=== PATIENT | female | born 1995 | race Caucasian/White ===

== ENCOUNTER 2019-01-20 19:04 | Emergency (ER) ==
[2019-01-20 20:08] LABS: APPEARANCE,URINE SLIGHTLY-CLOUDY; BILIRUBIN,URINE NEGATIVE (NEGATIVE); COLOR,URINE YELLOW; GLUCOSE, URINE NEGATIVE (NEGATIVE); KETONES,URINE NEGATIVE (NEGATIVE); LEUKOCYTE ESTERASE,URINE TRACE (NEGATIVE); NITRITE,URINE NEGATIVE (NEGATIVE); PROTEIN,URINE NEGATIVE (NEGATIVE); URINE SPECIFIC GRAVITY 1.024
== END 2019-01-20 21:42 | disposition left against medical advice (07) ==
LOC: ER 19:04
DX: Z53.21 Procedure and treatment not carried out due to patient leaving prior to being seen by health care provider (principal)
CPT/HCPCS: 81001; 81025

== ENCOUNTER 2019-07-06 16:28 | Emergency (ER) | payer OTHER ==
[2019-07-06] MEDS ORDERED: ONDANSETRON 4 MG TAB.RAPDIS PO ONE (17:22)
--- NOTE | 2019-07-06 17:24 | ER Document Report ---
ED Medical Screen (RME) - General Chief Complaint: Abdominal Pain Stated Complaint: ABDOMINAL PAIN,NAUSEA,PAINFUL URINATION Time Seen by Provider: 07/06/19 17:21 Mode of Arrival: Ambulatory Information source: Patient Notes: 24-year-old female presented to ED for complaint of abdominal pain that shoots up to her chest. She states she has had nausea and vomiting and pain with bowel movements for about a week. She states she only has the pain in her abdomen until she gets nauseated and then the pain shoots up to her chest. She is alert oriented respirations regular nonlabored speaking in full sentences. I have greeted and performed a rapid initial assessment of this patient. A comprehensive ED assessment and evaluation of the patient, analysis of test results and completion of medical decision making process will be conducted by an additional ED providers. TRAVEL OUTSIDE OF THE [place] IN LAST 30 DAYS: No - Related Data Allergies/Adverse Reactions: fluoxetine [From Prozac] Allergy (Verified 01/20/19 19:29) latex Allergy (Verified 01/20/19 19:29) Past Medical History - Social History Frequency of alcohol use: None Drug Abuse: None Physical Exam - Vital signs Vitals: Temp Pulse Resp BP Pulse Ox 98.3 F 104 H 20 140/83 H 100 07/06/19 16:41 07/06/19 16:41 07/06/19 16:41 07/06/19 16:41 07/06/19 16:41 Course - Vital Signs Vital signs: Temp Pulse Resp BP Pulse Ox 98.3 F 104 H 20 140/83 H 100 07/06/19 17:19 07/06/19 16:41 07/06/19 17:19 07/06/19 16:41 07/06/19 17:19
[2019-07-06 18:03] LABS: ABSOLUTE BASOPHILS # (AUTO) 0.1 10^3/uL (0.0-0.2); ABSOLUTE EOSINOPHILS # (AUTO) 0.1 10^3/uL (0.0-0.6); ABSOLUTE LYMPHOCYTES (AUTO) 2.2 10^3/uL (0.5-4.7); ABSOLUTE MONOCYTES (AUTO) 0.7 10^3/uL (0.1-1.4); BASOPHILS % (AUTO) 0.8 % (0-2); EOSINOPHILS % (AUTO) 1.7 % (0-6); HEMATOCRIT 42.1 % (36.0-47.0); HEMOGLOBIN 14.4 g/dL (12.0-15.5); LYMPHOCYTES % (AUTO) 27.5 % (13-45); MEAN CORPUSCULAR HEMOGLOBIN 31.1 pg (27.0-33.4); MEAN CORPUSCULAR HGB CONC 34.2 g/dL (32.0-36.0); MEAN CORPUSCULAR VOLUME 91 fl (80-97); MONOCYTES % (AUTO) 8.5 % (3-13); PLATELET COUNT 259 10^3/uL (150-450); RED BLOOD COUNT 4.63 10^6/uL (3.72-5.28); RED CELL DISTRIBUTION WIDTH 12.8 % (11.5-14.0); SEGMENTED NEUTROPHILS % (AUTO) 61.5 % (42-78); TOTAL CELLS COUNTED % (AUTO) 100 %; WHITE BLOOD COUNT 8.1 10^3/uL (4.0-10.5)
--- NOTE | 2019-07-06 18:14 | ER Document Report ---
ED General - General Chief Complaint: Abdominal Pain Stated Complaint: ABDOMINAL PAIN,NAUSEA,PAINFUL URINATION Time Seen by Provider: 07/06/19 17:21 Primary Care Provider: KRISTYN JETER PA-C [Primary Care Provider] - Follow up in 1 week Mode of Arrival: Ambulatory Information source: Patient Notes: 24-year-old female with history of GERD, kidney stones, hypoglycemia presents emergency department with complaints of left lower mid abdominal pain for the past week. She reports she has vomited 3 times. Reports last bowel movement was today. She reports increased pain after she has a bowel movement. Denies fever and diarrhea. Denies history of Crohn's or IBS. Denies pain with void. Denies vaginal discharge. Patient left lower quad very tender to palpate TRAVEL OUTSIDE OF THE [place] IN LAST 30 DAYS: No - HPI Onset: Last week Onset/Duration: Persistent Quality of pain: Achy Severity: Severe Associated symptoms: Nausea, Vomiting Exacerbated by: Denies Relieved by: Denies Similar symptoms previously: No Recently seen / treated by doctor: No - Related Data Allergies/Adverse Reactions: fluoxetine [From Prozac] Allergy (Verified 01/20/19 19:29) latex Allergy (Verified 01/20/19 19:29) Past Medical History - General Information source: Patient Last Menstrual Period: friday - Social History Smoking Status: Unknown if Ever Smoked Cigarette use (# per day): No Frequency of alcohol use: None Drug Abuse: None Lives with: Family Family History: Hypertension Patient has suicidal ideation: No Patient has homicidal ideation: No Endocrine Medical History: Reports: Other - hypoglycemia Renal/ Medical History: Reports: Hx Kidney Stones GI Medical History: Reports: Hx Gastroesophageal Reflux Disease Infectious Medical History: Reports: Other - staph Past Surgical History: Reports: Other - cyst removed Review of Systems - Review of Systems Notes: Review HPI for review of systems., All other systems negative Physical Exam - Vital signs Vitals: Temp Pulse Resp BP Pulse Ox 98.3 F 104 H 20 140/83 H 100 07/06/19 16:41 07/06/19 16:41 07/06/19 16:41 07/06/19 16:41 07/06/19 16:41 - General General appearance: Alert In distress: None - HEENT Head: Normocephalic Eyes: Normal Conjunctiva: Normal Extraocular movements intact: Yes Eyelashes: Normal Neck: Normal, Supple. No: Lymphadenopathy - Respiratory Respiratory status: No respiratory distress Chest status: Nontender Breath sounds: Normal Chest palpation: Normal - Cardiovascular Rhythm: Regular Heart sounds: Normal auscultation Murmur: No - Abdominal Inspection: Normal Distension: No distension Bowel sounds: Hypoactive Tenderness: Tender Organomegaly: No organomegaly Adult front & back diagram: 1 - Left lower quad mid abdomen tender to palpate, abdomen soft - Back Back: CVA tenderness - Bilateral flank pain - Extremities General upper extremity: Normal ROM, Normal strength General lower extremity: Normal ROM, Normal strength - Neurological Neuro grossly intact: Yes Cognition: Normal Orientation: AAOx4 [place] Coma Scale Eye Opening: Spontaneous [place] Coma Scale Verbal: Oriented [place] Coma Scale Motor: Obeys Commands [place] Coma Scale Total: 15 Speech: Normal - Psychological Associated symptoms: Normal affect, Normal mood - Skin Skin Temperature: Warm Skin Moisture: Dry Skin Color: Normal Course - Re-evaluation Re-evalutation: 07/06/19 19:27 24-year-old female presents with left lower quad mid abdominal pain for the past week. Reports pain increases after having a bowel movement. Last bowel movement was today. Denies history of constipation but reports she has experienced constipation in the past. Reports she is vomited 3 times in the past week denies fever. Denies history of IBS Crohn's diverticulitis. Patient left lower quad mid and lower abdomen tender to palpate 07/06/19 21:[address] negative patient instructed on all results. Instructed follow-up with primary care provider for continued pain within 1 week. She verbalized understand all instructions. 07/06/19 17:39 07/06/19 17:39 MCV 91 fl (80-97) 07/06/19 17:39 MCH 31.1 pg (27.0-33.4) 07/06/19 17:39 MCHC 34.2 g/dL (32.0-36.0) 07/06/19 17:39 RDW 12.8 % (11.5-14.0) 07/06/19 17:39 Seg Neutrophils % 61.5 % (42-78) 07/06/19 17:39 Chloride 103 mmol/L (98-107) 07/06/19 17:39 Carbon Dioxide 28 mmol/L (22-30) 07/06/19 17:39 Anion Gap 10 (5-19) 07/06/19 17:39 Est GFR ( Amer) > 60 (>60) 07/06/19 17:39 Glucose 91 mg/dL (75-110) 07/06/19 17:39 Calcium 10.1 mg/dL (8.4-10.2) 07/06/19 17:39 Total Bilirubin 0.5 mg/dL (0.2-1.3) 07/06/19 17:39 AST 23 U/L (14-36) 07/06/19 17:39 Alkaline Phosphatase 60 U/L (38-126) 07/06/19 17:39 Total Protein 8.3 g/dL (6.3-8.2) H 07/06/19 17:39 Albumin 4.8 g/dL (3.5-5.0) 07/06/19 17:39 Lipase 135.6 U/L (23-300) 07/06/19 17:39 Serum HCG, Qual NEGATIVE (NEGATIVE) 07/06/19 17:39 Urine Color YELLOW 07/06/19 18:45 Urine Appearance TURBID 07/06/19 18:45 Urine pH 9.0 (5.0-9.0) 07/06/19 18:45 Ur Specific [place] 1.021 07/06/19 18:45 Urine Protein 30 mg/dL (NEGATIVE) H 07/06/19 18:45 Urine Glucose (UA) NEGATIVE mg/dL (NEGATIVE) 07/06/19 18:45 Urine Ketones NEGATIVE mg/dL (NEGATIVE) 07/06/19 18:45 Urine Blood NEGATIVE (NEGATIVE) 07/06/19 18:45 Abdomen/Pelvis CT 07/06/19 19:23 IMPRESSION: No acute abdominal or pelvic findings. - Vital Signs Vital signs: Temp Pulse Resp BP Pulse Ox 98.2 F 81 16 109/60 100 07/06/19 21:57 07/06/19 21:57 07/06/19 21:57 07/06/19 21:57 07/06/19 21:57 - Laboratory Result Diagrams: 07/06/19 17:39 07/06/19 17:39 Laboratory results interpreted by me: 07/06/19 07/06/19 17:39 18:45 Total Protein 8.3 H Urine Protein 30 H Leukocyte Esterase Rfl TRACE H Discharge - Discharge Clinical Impression: Abdominal pain Condition: Stable Disposition: HOME, SELF-CARE Instructions: Abdominal Pain ([facility]) Additional Instructions: *You have been evaluated for abdominal pain Your CT and labs were unremarkable today *Follow up with a primary care provider within 1 week for recheck *Return to ED for worsening condition, changes, needs *Return to ED if not better in 24 hours Referrals: KRISTYN JETER PA-C [Primary Care Provider] - Follow up in 1 week
[2019-07-06 18:28] LABS: ALBUMIN 4.8 g/dL (3.5-5.0); ALKALINE PHOSPHATASE 60 U/L (38-126); ANION GAP 10 (5-19); ASPARTATE AMINO TRANSFERASE 23 U/L (14-36); BILIRUBIN,DIRECT 0.1 mg/dL (0.0-0.4); BILIRUBIN,TOTAL 0.5 mg/dL (0.2-1.3); BLOOD UREA NITROGEN 14 mg/dL (7-20); CALCIUM 10.1 mg/dL (8.4-10.2); CARBON DIOXIDE 28 mmol/L (22-30); CHLORIDE 103 mmol/L (98-107); GLUCOSE 91 mg/dL (75-110); POTASSIUM 4.3 mmol/L (3.6-5.0); TOTAL PROTEIN 8.3 g/dL (6.3-8.2)
[2019-07-06 19:14] LABS: AMORPHOUS SEDIMENT,URINE 1+ /HPF; APPEARANCE,URINE TURBID; BILIRUBIN,URINE NEGATIVE (NEGATIVE); COLOR,URINE YELLOW; GLUCOSE, URINE NEGATIVE (NEGATIVE); KETONES,URINE NEGATIVE (NEGATIVE); PROTEIN,URINE 30 mg/dL (NEGATIVE); URINE SPECIFIC GRAVITY 1.021; UROBILINOGEN,URINE NEGATIVE mg/dL (<2.0)
--- NOTE | 2019-07-06 21:19 | RADIOLOGY REPORT (SQ) ---
CT ABDOMEN PELVIS WITH IV CONTRAST EXAM DATE: 07/06/2019 7:23 PM [employer] [employer] HISTORY: Left lower quadrant pain. COMPARISON: None. TECHNIQUE: CT scan of the abdomen and pelvis was performed with IV contrast. This exam was performed according to our departmental dose-optimization program, which includes automated exposure control, adjustment of the mA and/or kV according to patient size and/or use of iterative reconstruction technique. FINDINGS: The lung bases are clear. No pleural or pericardial effusions. There is no hiatal hernia. The liver, spleen, pancreas, gallbladder, adrenal glands, and kidneys are unremarkable. No urinary stones are seen. The pelvic organs are also unremarkable. No small bowel obstruction. No evidence of appendicitis. There is no evidence of diverticulitis. No intraperitoneal free fluid or free air is identified. The aorta is normal caliber. No acute bony findings are seen. There is no pathologic body wall hernia. IMPRESSION: No acute abdominal or pelvic findings.
[2019-07-06 22:00] VITALS: BP 109/60
== END 2019-07-06 21:57 | disposition home or self-care (01) ==
LOC: ER 16:28
DX: R10.9 Unspecified abdominal pain (principal); R30.9 Painful micturition, unspecified; K21.9 Gastro-esophageal reflux disease without esophagitis; R10.32 Left lower quadrant pain; R11.2 Nausea with vomiting, unspecified; E16.2 Hypoglycemia, unspecified
CPT/HCPCS: 99284; 36415; 87086; 83690; 84703; 85025; 80053; 81001; 74177; S0119